=== PATIENT | female | born 1975 | race Caucasian/White ===

== ENCOUNTER 2016-11-04 13:01 | Emergency (ER) | payer OTHER ==
[~2016-11-04] VITALS: Ht 167.6 cm; Wt 75.0 kg
[~2016-11-04 13:01] MED LIST: ALPR0.5T3 PO; ATOR1TAB18 PO; CHOL1TAB18 PO; DEPO150I IM; DULO1CAP3 PO; PRAZ1CAP PO; RIZA10TA2; [UNRECOGNIZED DRUG - CODE] EACH EYE
[2016-11-04 13:03] VITALS: BP 111/64; PULSE 84; RESP 20; TEMP 98; O2SAT 99
--- NOTE | 2016-11-04 13:51 | PD ---
Physical Exam Time Seen by Provider: 13:49 Narrative 41yo F [facility] in the [facility] since Friday. Denies pain. reports swelling, warmth and redness to the area. Denies nipple discharge, fever, vomiting. Patient seen in triage. Awaiting bed placement. VS reviewed. Data Data Last Documented VS Vital Signs Date Time Temp Pulse Resp B/P Pulse Ox O2 Delivery O2 Flow Rate FiO2 11/04/16 13:03 98.0 84 20 111/64 99 Room Air MDM Supervised Visit with JIMBO: Ana Maria Cook Nov 04, 2016 13:50
--- NOTE | 2016-11-04 15:17 | RADRPT ---
EXAM DATE/TIME: 11/04/2016 14:34 [place] COMPARISON: No previous studies available for comparison. EXTERNAL COMPARISON : [facility], US BREAST, LEFT, February 01, 2008. INDICATIONS : Left breast swelling and pain. MEDICAL HISTORY : Hypercholesterolemia. CVA. Migraines. COPD. Asthma. Chronic bronchitis. Ovarian cysts. Bulging di scs. Anemia. Borderline diabetes. PTSD. Mood disorder. SURGICAL HISTORY : Tubal ligation. section. Bilateral knees arthroscopic. ENCOUNTER: Initial ACUITY: 4-6 days PAIN SCORE: 5/10 LOCATION: Left breast. FINDINGS: Park scale and Doppler ultrasound imaging was performed of the left breast in the area of pain and sw elling. Around the 12: 00 position, 5 cm from the nipple there is a heterogeneous echotexture structure measuring 6.6 x 2.8 x 5.4 cm containing cystic area measuring 2.3 cm. Similar appearing structure is identified at the 3: 00 position, 4 cm in the nipple measuring up to 4.2 cm. Normal vascularity is identified. CONCLUSION: Nonspecific areas of heterogeneous tissue are identified in the areas of clinical interest at the 12: 00 position 3:00 position. This may represent normal breast tissue containing areas of cystic change. However, these findings need to be correlated with physical examination and mammography is lowered t o exclude malignancy or signs of infection. Recommend followup on an outpatient basis with diagnostic mammogram and ultrasound workup. Mg Escamilla MD on November 04, 2016 at 15:12 Board Certified Radiologist. This report was verified electronically.
[2016-11-04] MEDS ORDERED: CLIN1CAP6 PO (15:29)
--- NOTE | 2016-11-04 15:31 | PD ---
HPI Chief Complaint: Lump, Cyst, Hernia Time Seen by Provider: 15:23 Travel History International Travel<30 days: No Contact w/Intl Traveler<30days: No Traveled to known affect area: No History of Present Illness HPI 41-year-old female here with 2-3 days of left-sided breast pain and swelling. She has noticed several lumps on the left breast that are red, swollen primarily in the 3:00 and noon position. She denies any fevers, chills, discharge from the nipple. She had a mammography approximately 2 years ago that was normal. PFSH Past Medical History Anemia: Yes Asthma: Yes Heart Rhythm Problems: No Cardiac Catheterization: No Cardiovascular Problems: Yes High Cholesterol: Yes COPD: Yes (CHRONIC BRONCHITIS) Cerebrovascular Accident: Yes Diabetes: Yes (BORDERLINE DIABETES) Diminished Hearing: No Musculoskeletal: Yes (BULGING DISC) Psychiatric: Yes (MOOD DISORDER; PTSD) Respiratory: Yes (ASTHMA COPD) Immunizations Current: No Migraines: Yes ?: Not : 5 Para: 2 Miscarriage: 3 : 0 Ovarian Cysts: Yes Tubal Ligation: Yes (2003) Past Surgical History Section: Yes (X 2) Coronary Artery Bypass Graft: No Gynecologic Surgery: Yes Oral Surgery: Yes (TEETH EXTRACTION) Other Surgery: Yes (TEETH EXTRACTION) Social History Alcohol Use: No Tobacco Use: Yes (1/2PPD) Substance Use: No Allergies-Medications (Allergen,Severity, Reaction): Coded Allergies: Albuterol (Verified Allergy, Severe, SHAKING, 04/03/16) Egg Allergy (Verified Allergy, Severe, SWELLING, 04/03/16) Tramadol (Verified Allergy, Severe, UNRESPONSIVE, 04/03/16) Lactose (Verified Allergy, Mild, 04/03/16) Aspirin (Verified Allergy, Unknown, Migraine, 04/03/16) Demerol (Verified Allergy, Unknown, "Makes my body go numb", 04/03/16) Uncoded Allergies: FISH (Allergy, Severe, HIVES, SWELLING, 05/31/08) Reported Meds & Prescriptions Reported Meds & Active Scripts Active Clindamycin (Clindamycin HCl) 300 Mg Cap 300 Mg PO TID 7 Days Reported Rizatriptan (Rizatriptan Benzoate) 10 Mg Tab Prazosin (Prazosin HCl) 1 Mg Cap 1 Mg PO HS Depo-Provera Inj (Medroxyprogesterone Inj) 150 Mg/Ml Inj 150 Mg IM Q90D Duloxetine DR (Duloxetine HCl) 60 Mg Capdr 60 Mg PO DAILY Cleo-Rul Vitamin D (Cholecalciferol) 1,000 Unit Tab 1,000 Units PO DAILY Lubricating Plus Unit-Dose Opth Drops (Carboxymethylcellulose Sodium Opth Drops ) 0.5% Drops 1 Drop EACH EYE QID Atorvastatin (Atorvastatin Calcium) 80 Mg Tab 80 Mg PO HS Alprazolam 0.5 Mg Tab 0.5 Mg PO Q8H Review of Systems Except as stated in HPI: all other systems reviewed are Neg Physical Exam Narrative GENERAL: Well-appearing female in no acute distress SKIN: Focused skin assessment warm/dry. The left breast has erythema superior to the nipple from noon and 3:00 with firmness, no palpable fluctuance. HEAD: Normocephalic. EYES: No scleral icterus. No injection or drainage. ENT: Mucous membranes pink and moist. NECK: Supple CARDIOVASCULAR: Regular rate and rhythm. RESPIRATORY: No accessory muscle use. MUSCULOSKELETAL: Moves all extremities normally NEUROLOGICAL: Awake and alert. Normal speech. PSYCHIATRIC: Appropriate mood and affect; insight and judgment normal. Data Data Last Documented VS Vital Signs Date Time Temp Pulse Resp B/P Pulse Ox O2 Delivery O2 Flow Rate FiO2 11/04/16 13:03 98.0 84 20 111/64 99 Room Air Orders Us Breast Unilateral (11/04/16 ) Mandatory Outpatient Referral (11/04/16 15:31) [facility] Medical Decision Making Medical Screen Exam Complete: Yes Emergency Medical Condition: Yes Medical Record Reviewed: Yes Differential Diagnosis 41-year-old female here with left breast pain, swelling. Exam is consistent with cellulitis versus abscess and less likely malignancy given the sudden onset. Narrative Course Ultrasound the left breast was obtained showing nonspecific areas of heterogeneous tissue at noon and 3:00, normal breast tissue with cystic change versus malignancy or signs of infection. Clinically, this is most consistent with infection and she will be started on clindamycin for home. She was given a mandatory referral to the breast Navigator and information to follow-up with breast Navigator for mammography if her symptoms do not improve. Diagnosis Primary Impression: Cellulitis of left breast Additional Instructions: Antibiotics as prescribed. Follow-up with breast navigate her for assistance with outpatient mammography if symptoms do not improve and return to the ER for the warning signs discussed. Breast Navigator: Ivory Puente [phone] Med/Other Pt SpecificInfo: Prescription(s) given Scripts Clindamycin 300 Mg Ckc248 Mg PO TID 7 Days Ref 0 Prov:Martha Kruger MD 11/04/16 Disposition: 01 DISCHARGE HOME Condition: Stable Martha Kruger MD Nov 04, 2016 15:31
== END 2016-11-04 15:44 | disposition home or self-care (01) ==
LOC: NEPD 13:01
DX: N61.0 Mastitis without abscess (principal); R73.03 Prediabetes; E78.00 Pure hypercholesterolemia, unspecified; F17.200 Nicotine dependence, unspecified, uncomplicated; Z86.2 Personal history of diseases of the blood and blood-forming organs and certain disorders involving the immune mechanism; Z87.09 Personal history of other diseases of the respiratory system; Z86.79 Personal history of other diseases of the circulatory system; Z87.39 Personal history of other diseases of the musculoskeletal system and connective tissue; Z86.59 Personal history of other mental and behavioral disorders; Z86.69 Personal history of other diseases of the nervous system and sense organs
CPT/HCPCS: 76642; 99284